=== PATIENT | male | born 1990 | race Caucasian/White ===

== ENCOUNTER 2016-12-12 18:45 | Emergency (ER) | payer BC, OTHER ==
[2016-12-12 18:50] VITALS: BP 147/71
[2016-12-12] MEDS ORDERED: Sodium Chloride 0.9% 10 ML Syringe FLUSH PRN ×2 (18:56→19:23)
[2016-12-12] MEDS ORDERED: Diphtheria,Pertussis(Acell),Tetanus Vaccine 0.5 ML SDV inactive IM ONE (18:58)
[2016-12-12] MEDS ORDERED: HYDROmorphone 0.5 MG/0.5 ML Syringe IVPUSH ONE (19:01)
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
[2016-12-12] MEDS ORDERED: Sodium Chloride 0.9% 1,000 ML IV SCH (19:15)
[2016-12-12] MEDS ORDERED: Iopamidol 612 MG/ML 150 ML Bottle IVPUSH ONE (19:23)
[2016-12-12] MEDS ORDERED: Diphtheria,Pertussis(Acell),Tetanus Vaccine 0.5 ML SDV IM ONE (19:36)
[2016-12-12] MEDS ORDERED: HYDROmorphone 0.5 MG/0.5 ML Syringe IVPUSH STA (19:47)
--- NOTE | 2016-12-12 20:03 | CT ---
Head CT Technique: Multiple axial sections through the brain were obtained. Intravenous contrast was not utilized. Comparison: No previous intracranial imaging. Findings: Ventricles along with basal cisterns and sulci over the convexities appear within normal limits for the patient's age. No abnormal parenchymal densities are seen. No evidence of intracranial hemorrhage. No midline shift or mass effect is seen. Bone window settings were reviewed which shows opacification on the left side of the sphenoid sinus with minimal mucosal thickening within the right side of the sphenoid sinus. Minimal mucosal thickening is seen within the right ethmoid sinus. No air-fluid level are seen within the paranasal sinuses. No acute calvarial abnormality is seen. Impression: 1. Paranasal sinus disease as noted above most likely chronic. 2. Other portions of the noncontrast head CT exam appear within normal limits. Diagnostic code #3
--- NOTE | 2016-12-12 20:11 | CT ---
CT abdomen and pelvis Technique: Multiple axial sections were obtained from above the dome of the diaphragm inferiorly through the pubic symphysis. Intravenous contrast was utilized. No oral contrast has been given. Findings: Small portion of the visualized lung bases are clear. Liver shows no focal parenchymal abnormality. Gallbladder shows no calcified gallstones. Spleen appears within normal limits. Adrenal glands show no nodule. Pancreas is within normal limits. Kidneys show symmetric contrast enhancement without hydronephrosis or mass. Aorta shows no aneurysmal dilatation. No retroperitoneal adenopathy or mesenteric abnormalities are seen. No pelvic mass or adenopathy is seen. No free fluid or inflammatory change is seen. Appendix is not seen with certainty. Fracture is identified within the left inferior pubic ramus with additional fracture being seen at the junction of the inferior acetabulum and superior ramus. No additional pelvic fracture is seen. Impression: 1. Fracture of the left inferior pubic ramus with additional fracture within the left superior pubic ramus involving the inferior and anterior acetabulum. 2. No additional abnormality is seen on CT study of the abdomen and pelvis. Diagnostic code #3
--- NOTE | 2016-12-13 07:41 | CR ---
Chest: Portable view of the chest was obtained. Comparison: No previous study. Heart size and mediastinum are normal. Lungs are clear. Distal left clavicle fracture is seen with displacement. No discrete rib abnormality is seen. Impression: 1. Distal left clavicle fracture. 2. Nothing acute is otherwise appreciated on frontal chest x-ray. Diagnostic code #3
== END 2016-12-12 22:38 | disposition home or self-care (01) ==
LOC: JD.ED 18:45
DX: S32.592A Other specified fracture of left pubis, initial encounter for closed fracture (principal); S32.512A Fracture of superior rim of left pubis, initial encounter for closed fracture; S42.032A Displaced fracture of lateral end of left clavicle, initial encounter for closed fracture; S00.01XA Abrasion of scalp, initial encounter; R31.9 Hematuria, unspecified; V29.9XXA Motorcycle rider (driver) (passenger) injured in unspecified traffic accident, initial encounter
CPT/HCPCS: 36415; 70450; 71010; 74177; 80053; 80306; 81001; 83690; 85025; 85610; 85730; 86850; 86900; 86901; 90471; 90715; 93005; 96361; 96374; 99285; G0480; J1170; J7040; J7050; Q9967

== ENCOUNTER 2016-12-16 10:09 | Day surgery (SDC) | payer BC, OTHER ==
[~2016-12-16 10:09] MED LIST: Ketorolac 30 MG/ML SDV ONE; Lactated Ringers 1,000 ML IV SCH; Lidocaine 1% 4 ML ONE; Lidocaine 1%/Sod Bicarbonate in NS 8.4% 1 ML Syringe IV PRN; Midazolam 1 MG/ML 2 ML SDV ONE; Ondansetron 4 MG/2 ML SDV ONE; Propofol 200 MG/20 ML SDV ONE; Rocuronium 50 MG/5 ML Vial ONE; Sodium Chloride 0.9% 10 ML Syringe FLUSH PRN; fentaNYL 250 MCG/5 ML SDV ONE
[2016-12-16] MEDS ORDERED: ceFAZolin 1 GM Vial ONE (10:42)
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
[2016-12-16] MEDS ORDERED: Meperidine PF 50 MG/ML Syringe IVPUSH PRN (11:27)
[2016-12-16] MEDS ORDERED: Ondansetron 4 MG/2 ML SDV IVPUSH PRN (11:27)
[2016-12-16] MEDS ORDERED: HYDROmorphone 1 MG/ML Syringe IVPUSH PRN (11:27)
[2016-12-16] MEDS: Bupivacaine 0.25% 30 ML SDV ONE ×2 (12:05→12:47)
[2016-12-16] MEDS ORDERED: Lactated Ringers 1,000 ML ONE (12:45)
--- NOTE | 2016-12-16 13:02 | PCM.POSTAN ---
POST ANESTHESIA ASSESSMENT - MENTAL STATUS Mental Status: alert, oriented - VITAL SIGNS Pulse Rate: 85 SaO2: 100 Resp Rate: 15 Blood Pressure: 135/66 Temperature: 97 F - RESPIRATORY Respiratory Status: respiratory rate WNL, airway patent, O2 saturation stable, supplemental oxygen - CARDIOVASCULAR CV Status: pulse rate WNL, blood pressure stable - GASTROINTESTINAL GI Status: no symptoms - PAIN Pain Score: 0 - POST OP HYDRATION Hydration Status: adequate & stable
--- NOTE | 2016-12-16 13:10 | CR ---
Left clavicle: Multiple fluoroscopic spot views were obtained of the left clavicle utilizing C-arm device. Study shows reduction and fixation of previous distal clavicle fracture. Fluoroscopy time is given as 47.6 seconds. Impression: 1. Findings as noted above. Diagnostic code #2
[2016-12-16] MEDS: fentaNYL 100 MCG/2 ML SDV IVPUSH PRN ×2 (13:16→13:32)
[2016-12-16] MEDS ORDERED: HYDROmorphone 0.5 MG/0.5 ML Syringe ONE (13:28)
[2016-12-16] MEDS ORDERED: Acetaminophen/HYDROcodone 325-5 MG Tab PO ONE (14:36)
[2016-12-16 15:29] VITALS: BP 136/66
--- NOTE | 2016-12-22 20:55 | PCM.OPNOTE ---
- General Post-Op/Procedure Note Date of Surgery/Procedure: 12/16/16 Operative Procedure(s): open reduction internal fixation of left lateral clavicle shaft fracture Pre Op Diagnosis: left distal clavicle shaft fracture Post-Op Diagnosis: Same Anesthesia Technique: General ET tube, Local Primary Surgeon: Elieser Elizabeth Anesthesia Provider: Jodee Moy Netbackup Engineer: Keesha Florez EBL in mLs: 100 Complications: None Condition: Good
--- NOTE | 2016-12-22 22:24 | OR ---
DATE OF OPERATION: 12/16/2016 SURGEON: Elieser Elizabeth MD OPERATIVE PROCEDURE: Open reduction and internal fixation of left lateral clavicle shaft fracture. PREOPERATIVE DIAGNOSIS: Left distal clavicle shaft fracture. POSTOPERATIVE DIAGNOSIS: Left distal clavicle shaft fracture. ANESTHESIA: General endotracheal intubation with local. ANESTHESIA PROVIDER: Dr. Moses Goyal. AGING ROOM OPERATOR: Keesha Florez PA-C. ESTIMATED BLOOD LOSS: 100 mL. COMPLICATIONS: None. CONDITION: Stable. DESCRIPTION OF PROCEDURE: The patient was identified in the preop holding area, proper site was marked and identified by the surgeon. The patient was taken back to the operating theatre where after adequate anesthesia, the patient's left clavicle sterilely prepped and draped in the usual sterile fashion. OR time-out was performed. The patient received 2 g IV Ancef. The patient was then placed in reverse Trendelenburg position on the flat top radiolucent table. At this time, skin incision was made directly over the lateral clavicle anteriorly, this was taken through the platysma level and the fracture site was then identified. Care was taken not to strip too much periosteum off the clavicle fragments. There was noted to be a very small distal clavicle fragment with significant weak bone. At this time, old fracture hematoma was curetted and rongeured out. Provisional reduction was then done with a lobster claw. There was found to be adequate reduction. A [place] 4 hole lateral distal clavicle plate was then placed, and then under direct fluoroscopy, was placed in the proper position. At this time, it was fixed to the bone medially with a 3.5 cortical screw. Next, five 3.5 mm locking screws were placed distally and 3 more cortical screws were placed proximally. This was found to have adequate fixation. The lobster claw clamp was taken off. Both AP and straight superior views were then taken of the clavicle. There was found to be an adequate fixation as well as proper positioning. At this time, adequate saline was irrigated through the wound. At this time, 2.5 g Vitoss calcium was then placed around the fracture site as the patient had significant tobacco history. Platysmal level was then closed with 0 Vicryl, 3-0 Vicryl was used subcutaneously and Prineo was used for the skin. The patient was placed in a sling and sent to the PACU in stable condition. The patient tolerated the procedure well. OPERATION PERFORMED: SANTHOSH /[id number]
== END 2016-12-16 15:21 | disposition home or self-care (01) ==
LOC: JD.SDS 10:09
PROVIDERS: ATTEND Orthopaedic Surgery
PROC: 0PSB04Z Reposition Left Clavicle with Internal Fixation Device, Open Approach (ICD-10-PCS; principal; 2016-12-16)
DX: S42.022A Displaced fracture of shaft of left clavicle, initial encounter for closed fracture (principal); V28.0XXA Motorcycle driver injured in noncollision transport accident in nontraffic accident, initial encounter
CPT/HCPCS: 23515; 76000; 87641; A9270; C1713; C1768; J0690; J1170; J1885; J2250; J2405; J3010; J7120; 01630; J2704; J3490

== ENCOUNTER 2017-07-29 02:04 | Emergency (ER) | payer BC, OTHER | END 2017-07-29 02:40 | disposition left against medical advice (07) | LOC: JD.ED 02:04 | DX: Z53.21 Procedure and treatment not carried out due to patient leaving prior to being seen by health care provider (principal) ==

== ENCOUNTER 2017-08-13 20:20 | Emergency (ER) | payer OTHER ==
[2017-08-13 20:36] VITALS: BP 136/87
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
--- NOTE | 2017-08-15 09:15 | US ---
Testicular ultrasound: Multiple real-time images of the testicles were obtained. Comparison: No prior study. Testicles have a homogeneous ultrasound appearance. No intratesticular abnormality is identified. Both arterial and venous blood flow are seen. No hydrocele is noted. Epididymis appear within normal limits. Measurements: Right testicle: 4.5 x 2.4 x 2.6 cm Left testicle: 4.2 x 1.9 x 3.0 cm Impression: 1. No abnormality is seen on testicular ultrasound exam. Diagnostic code #1 I agree with preliminary report issued by [facility] ([facility] report finalized on 08/13/17, 11:36 PM Central Time)
== END 2017-08-13 22:55 | disposition home or self-care (01) ==
LOC: JD.ED 20:20
DX: N50.82 Scrotal pain (principal); F17.210 Nicotine dependence, cigarettes, uncomplicated
CPT/HCPCS: 76870; 76870-26; 93975; 99283; 99285-25

== ENCOUNTER 2017-12-22 10:59 | Day surgery (SDC) | payer OTHER ==
[~2017-12-22 10:59] MED LIST changes: -Ketorolac 30 MG/ML SDV ONE; -Lidocaine 1% 4 ML ONE; +Lidocaine 1%/Sod Bicarbonate in NS 8.4% 1 ML Syringe IDERM PRN; -Lidocaine 1%/Sod Bicarbonate in NS 8.4% 1 ML Syringe IV PRN; -Midazolam 1 MG/ML 2 ML SDV ONE; -Ondansetron 4 MG/2 ML SDV ONE; -Propofol 200 MG/20 ML SDV ONE; -Rocuronium 50 MG/5 ML Vial ONE; -fentaNYL 250 MCG/5 ML SDV ONE
[2017-12-22] MEDS ORDERED: Bupivacaine 0.25% 30 ML SDV ONE (11:54)
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
[2017-12-22] MEDS ORDERED: Propofol 200 MG/20 ML SDV ONE (12:07)
[2017-12-22] MEDS ORDERED: Ondansetron 4 MG/2 ML SDV ONE (12:07)
[2017-12-22] MEDS ORDERED: Midazolam 1 MG/ML 2 ML SDV ONE (12:08)
[2017-12-22] MEDS ORDERED: ceFAZolin 1 GM Vial ONE (12:08)
[2017-12-22] MEDS ORDERED: Lidocaine 1% 4 ML ONE (12:08)
[2017-12-22] MEDS ORDERED: fentaNYL 250 MCG/5 ML SDV ONE (12:08)
[2017-12-22] MEDS ORDERED: fentaNYL 100 MCG/2 ML SDV IVPUSH PRN (13:19)
[2017-12-22] MEDS ORDERED: Ketorolac 30 MG/ML SDV IVPUSH PRN (13:19)
[2017-12-22] MEDS ORDERED: HYDROmorphone 0.5 MG/0.5 ML Syringe IVPUSH PRN (13:19)
--- NOTE | 2017-12-22 13:20 | PCM.POSTAN ---
POST ANESTHESIA ASSESSMENT - MENTAL STATUS Mental Status: Somnolent - VITAL SIGNS Pulse Rate: 67 SaO2: 96 Resp Rate: 9 Blood Pressure: 105/59 Temperature: 36.2 C - RESPIRATORY Respiratory Status: Respiratory Rate WNL, Airway Patent, O2 Saturation Stable, Supplemental Oxygen - CARDIOVASCULAR CV Status: Pulse Rate WNL, Blood Pressure Stable - GASTROINTESTINAL GI Status: No Symptoms - PAIN Pain Score: 0 - POST OP HYDRATION Hydration Status: Adequate & Stable - OBSERVATIONS Free Text/Narrative:: no anesthesia complications noted
--- NOTE | 2017-12-22 13:55 | CR ---
Left clavicle: Single AP view of the left clavicle was obtained utilizing C-arm device. Lucencies are seen within the clavicle compatible with previous orthopedic hardware which has been removed. Fluoroscopy time given as 1.2 seconds. Impression: 1. Procedural study as noted above. Diagnostic code #2
[2017-12-22 14:14] VITALS: BP 106/54
--- NOTE | 2017-12-26 07:24 | PCM.OPNOTE ---
- General Post-Op/Procedure Note Date of Surgery/Procedure: 12/22/17 Operative Procedure(s): removal of painful hardware left clavicle Pre Op Diagnosis: painful hardware left clavicle Post-Op Diagnosis: Same Anesthesia Technique: General ET Tube, Local Primary Surgeon: Elieser Elizabeth Anesthesia Provider: Diandra Matta Shading Painter: Keesha Florez EBL in mLs: 10 Complications: None Condition: Good
--- NOTE | 2017-12-27 14:53 | OR ---
DATE OF OPERATION: 12/22/2017 SURGEON: Elieser Elizabeth MD OPERATION PERFORMED: Removal of painful hardware, left clavicle post. PREOPERATIVE DIAGNOSIS: Painful hardware, left clavicle post. POSTOPERATIVE DIAGNOSIS: Painful hardware, left clavicle post. ANESTHESIA: General endotracheal intubation with local. ANESTHESIA PROVIDER: Diandra Matta CRNA ASSISTANT ENGINEER: Keesha Florez PA-C. ESTIMATED BLOOD LOSS: 10 mL. COMPLICATIONS: None. CONDITION: Stable. DESCRIPTION OF PROCEDURE: The patient was identified in the preoperative holding area. Proper site was marked and identified by the surgeon. The patient was taken back to the operating theater, where after adequate anesthesia, the patient's left upper extremity was sterilely prepped and draped in the usual sterile fashion. OR- wide time-out was performed. The patient received 2 grams of IV Ancef. At this time, previous incision was utilized. Blunt dissection was taken down through the platysma level, and the plate was identified. There was no significant overgrowth on the plate. Once the soft tissue was cleared, all the screws were then removed, and a [place] elevator was used to remove the plate. A rongeur was used to smooth out the clavicle, so that there were no roughened edges. Then, a curette was used throughout the previous screw holes. Adequate saline was then irrigated through the wound. 2-0 Vicryl was used for the platysma level and then 2-0 Vicryl pop-offs were used for closure of the subcutaneous. Then, Prineo was used for the skin. The patient tolerated the procedure well and was sent to the PACU in a stable condition. MMODAL /[id number]
== END 2017-12-22 15:15 | disposition home or self-care (01) ==
LOC: JD.SDS 10:59
PROVIDERS: ATTEND Orthopaedic Surgery
DX: T84.84XA Pain due to internal orthopedic prosthetic devices, implants and grafts, initial encounter (principal); F17.210 Nicotine dependence, cigarettes, uncomplicated; J30.2 Other seasonal allergic rhinitis; Z98.890 Other specified postprocedural states
CPT/HCPCS: 20680; 76000; 87641; J0690; J2250; J2405; J2704; J3010; J3490; J7120; 01360; J2001

== ENCOUNTER 2018-02-10 14:16 | Emergency (ER) | payer OTHER ==
[2018-02-10 14:22] VITALS: BP 111/71
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
[2018-02-10 17:04] LABS: ACETAMINOPHEN 0 ug/mL (10-30)
== END 2018-02-10 16:50 ==
LOC: JD.ED 14:16
DX: F32.9 Major depressive disorder, single episode, unspecified (principal); F19.10 Other psychoactive substance abuse, uncomplicated
CPT/HCPCS: 36415; 80053; 80306; 84443; 85007; 85027; 93005; 99285; G0480; 99284

== ENCOUNTER 2021-10-11 16:24 | Emergency (ER) | payer BC ==
[2021-10-11 17:14] VITALS: BP 120/85; PULSE 104
[2021-10-11] MEDS ORDERED: Proparacaine 0.5% Ophth Soln 15 ML Bottle EYEBOTH ONE (17:30)
[2021-10-11] MEDS ORDERED: Fluorescein 1 MG Ophth Strip EYEBOTH ONE (17:30)
[2021-10-11] MEDS ORDERED: Ciprofloxacin 0.3% Ophth Soln 5 ML Bottle EYERT SCH (18:00)
[2021-10-11] MEDS ORDERED: diphenhydrAMINE 50 MG Cap PO ONE (18:39)
[2021-10-11] MEDS ORDERED: Acetaminophen/oxyCODONE 325-5 MG Tab PO ONE (18:39)
[2021-10-11] MEDS ORDERED: Ketorolac 0.5% Ophth Soln 5 ML Bottle EYERT SCH (21:00)
== END 2021-10-11 18:45 | disposition home or self-care (01) ==
LOC: JD.ED 16:24
DX: T15.01XA Foreign body in cornea, right eye, initial encounter (principal); F17.210 Nicotine dependence, cigarettes, uncomplicated
CPT/HCPCS: 65220; 99283; A9270; Q0163